=== PATIENT | female | born 1955 | race Caucasian/White ===

== ENCOUNTER → 2021-06-28 14:28 | Outpatient (CLI) | payer OTHER, SELFPAY ==
--- NOTE | ~2021-06-28 | MMUS_ITS ---
EXAMINATION: MM diagnostic timbo BI w kwaku, US breast LT limited HISTORY: Pain of the inner left breast TECHNIQUE: Craniocaudal, mediolateral, and mediolateral oblique 3-D tomosynthesis images of the breas ts were performed and synthetic 2-D images were generated. CAD analysis was submitted and interpreted . High resolution limited left breast ultrasound was performed. COMPARISON: 06/10/2020, 05/05/2020, 02/26/2019, and 10/18/2016 BREAST PARENCHYMAL COMPOSITION: The breasts are heterogeneously dense, which may obscure small masses . FINDINGS: MAMMOGRAPHIC FINDINGS: There is no evidence of suspicious mass, calcification, or architectural distortion in either breast to suggest malignancy. There has been no suspicious interval change. No mammographic correlate is priyanka ntified for the reported area of pain in the inner left breast. ULTRASOUND: There is no evidence of focal abnormal solid or cystic mass in the vicinity of the reported left lakisha st pain. IMPRESSION: 1. No specific mammographic or sonographic correlate is identified for the patient's reported left br east pain Further evaluation at this time should be based on clinical assessment. Continued follow-up physical examination is recommended. 2. Recommend routine screening mammography in one year. BI-RADS Category 1: Negative Reviewed, dictated and finalized at location A. HEMIST IMPRESSION: 1. No specific mammographic or sonographic correlate is identified for the kris ent's reported left breast pain Further evaluation at this time should be based on clinical assessment. Continued follow-up physical examination is recommende d. 2. Recommend routine screening mammography in one year. BI-RADS Category 1: Negative
== END ==
PROVIDERS: PCP Family Medicine; Visit Provider Family Medicine
DX: N64.4 Mastodynia (principal)
CPT/HCPCS: 76642; 77062; 77066; G0279

== ENCOUNTER → 2022-03-25 09:45 | Outpatient (CLI) | payer OTHER, SELFPAY ==
--- NOTE | ~2022-03-25 | CT_ITS ---
EXAMINATION: CT abdomen pelvis w con INDICATION: Intra-abdominal and pelvic swelling after fat cell reducing procedure TECHNIQUE: Computed tomographic images of the abdomen and pelvis were obtained after the administrati on of 100 cc of Omnipaque 350 intravenous contrast. The dose-length product (DLP) was 847.22 mGy-cm. Automated exposure control and iterative reconstruction technique were employed. COMPARISON: None available FINDINGS: Minimal dependent atelectasis is present in the lung bases. The heart size is normal. Cysts of the liver measure up to 7 mm in the left hepatic lobe. There are stones in the nondistended gallb ladder. There is a 2 mm cyst of the spleen. There is a 5 mm cystic lesion in the tail of the pancreas on image 41. The adrenal glands are normal. The left kidney is unremarkable. There is a 5 mm cyst of the right kidney upper pole. No pathologically enlarged abdominal or pelvic lymph nodes are identifi ed. The appendix is normal. There is no free intraperitoneal gas or evidence of bowel obstruction. Th ere is a moderate volume of colonic stool. There are areas of circumscribed fat attenuation in the la teral abdominal eastman as well as the anterior abdominal wall in the left lower quadrant. There is a f at-containing left inguinal hernia. Changes of right hip arthroplasty are noted. IMPRESSION: 1. Areas of circumscribed fat attenuation in the lateral abdominal eastman and anterior left lower quad rant, likely fat necrosis related to fat Monday reducing procedure described in the clinical histor y. 2. 5 mm cystic lesion in the tail of the pancreas. The differential diagnosis includes pseudocyst, in traductal papillary mucinous neoplasm (IPMN), mucinous cystic neoplasm (MCN), and the less common ser ous cystadenoma and neuroendocrine tumor. Correlate for history of pancreatitis. Follow-up pancreas p rotocol CT or MRI in two years is recommended 3. Cholelithiasis without evidence of cholecystitis. Reviewed, dictated and finalized at location B. IMPRESSION: 1. Areas of circumscribed fat attenuation in the lateral abdominal eastman and an terior left lower quadrant, likely fat necrosis related to fat Monday reducin g procedure described in the clinical history. 2. 5 mm cystic lesion in the tail of the pancreas. The differential diagnosis i ncludes pseudocyst, intraductal papillary mucinous neoplasm (IPMN), mucinous cy stic neoplasm (MCN), and the less common serous cystadenoma and neuroendocrine tumor. Correlate for history of pancreatitis. Follow-up pancreas protocol CT or MRI in two years is recommended 3. Cholelithiasis without evidence of cholecystitis.
[2022-03-25 10:15] LABS: Estimated Glomerular Filt Rate > 60
== END ==
PROVIDERS: PCP Family Medicine; Visit Provider Family Medicine
DX: R19.00 Intra-abdominal and pelvic swelling, mass and lump, unspecified site (principal); Z98.890 Other specified postprocedural states; K86.2 Cyst of pancreas; K80.20 Calculus of gallbladder without cholecystitis without obstruction
CPT/HCPCS: 74177; Q9967

== ENCOUNTER → 2022-03-25 09:50 | Outpatient (CLI) | payer OTHER, SELFPAY ==
--- NOTE | ~2022-03-25 | CT_ITS ---
EXAMINATION: CT sinus wo con DATE: 03/25/2022 10:28 INDICATION: Chronic sinusitis. TECHNIQUE: Computed tomography (CT) of the paranasal sinuses was performed without intravenous contra st. Iterative reconstruction technique was employed. The dose-length product was 269.39 mGy-cm. COMPARISON: None FINDINGS: The frontal, ethmoid, sphenoid, and right maxillary sinuses are clear. There is mild mucosa l thickening in inferior left maxillary sinus. The ostiomeatal units are patent. The nasal septum is at midline. The middle turbinates are paradoxical anteriorly. IMPRESSION: 1. Mild mucosal thickening in inferior left maxillary sinus. Reviewed, dictated and finalized at location A.
== END ==
PROVIDERS: PCP Family Medicine; Visit Provider Otolaryngology
DX: J32.0 Chronic maxillary sinusitis (principal)
CPT/HCPCS: 70486

== ENCOUNTER → 2022-12-23 11:15 | Outpatient (CLI) | payer OTHER, SELFPAY ==
--- NOTE | ~2022-12-23 | US_ITS ---
Pelvic ultrasound. Clinical History: Pelvic pain Technique: Realtime transabdominal scanning of the pelvis was performed. Color flow Doppler and Doppl er spectral analysis were performed. Findings: The uterus is anteverted. The endometrial stripe has a thickness of 3 mm. Suspected ill-de fined anterior wall fibroid measuring 2.5 cm noted. The right ovary measures 2.6 x 1.1 x 2.3 cm. No significant right ovarian or adnexal mass is seen. The left ovary measures 2.1 x 1.3 x 2.4 cm. No significant left ovarian or adnexal mass is seen. No distinct evidence for torsion. There is no evidence of free fluid in the cul de sac. Impression: Suspected small uterine fibroid, as above. Reviewed, dictated and finalized at location . Impression: Suspected small uterine fibroid, as above.
== END ==
PROVIDERS: PCP Family Medicine; Visit Provider Nurse Practitioner Family
DX: R10.9 Unspecified abdominal pain (principal)
CPT/HCPCS: 76856

== ENCOUNTER 2023-09-15 11:50 | Outpatient (CLI) | payer OTHER, SELFPAY ==
--- NOTE | ~2023-09-15 | XR_ITS ---
AP and lateral views of the left tibia/fibula Clinical History: Pain Findings: No acute fracture or dislocation is seen. Osseous alignment is anatomic. Joint spaces are p reserved without significant erosive or degenerative change. Soft tissues are unremarkable. Impression: Unremarkable left tib-fib radiographs. Reviewed, dictated and finalized at [facility]. HNUT DOUGH MIXER Impression: Unremarkable left tib-fib radiographs.
== END 2023-09-15 11:51 ==
PROVIDERS: PCP Family Medicine; Visit Provider Family Medicine
DX: M79.662 Pain in left lower leg (principal)
CPT/HCPCS: 73590

== ENCOUNTER 2024-05-22 13:36 | Outpatient (CLI) | payer OTHER, SELFPAY ==
--- NOTE | ~2024-05-22 | MM_ITS ---
EXAMINATION: MM screening timbo BI w kwaku HISTORY: Screening TECHNIQUE: Craniocaudal and mediolateral oblique 3-D tomosynthesis images were obtained and synthetic 2-D images were generated. CAD analysis was submitted and interpreted. COMPARISON: 10/18/2016 BREAST PARENCHYMAL COMPOSITION: Not dense: There are scattered areas of fibroglandular density. FINDINGS: There is no evidence of suspicious mass, calcification, or architectural distortion to sugg est malignancy in either breast. There has been no suspicious interval change. IMPRESSION: 1. No mammographic evidence of malignancy. 2. Recommend routine screening mammography in one year. BI-RADS Category 1: Negative Reviewed, dictated and finalized at location B. RENCE INVESTIGATOR
== END 2024-05-22 13:37 | disposition home or self-care (01) ==
LOC: MICIMG 13:38
PROVIDERS: PCP Family Medicine; Visit Provider Obstetrics & Gynecology
DX: Z12.31 Encounter for screening mammogram for malignant neoplasm of breast (principal)
CPT/HCPCS: 77063; 77067

== ENCOUNTER 2024-08-20 15:16 | Outpatient (CLI) | payer OTHER, SELFPAY ==
--- NOTE | ~2024-08-20 | XR_ITS ---
EXAMINATION: XR chest 2V 08/20/2024 15:40 INDICATION: Cough PROCEDURE: 2 view chest COMPARISON: No prior studies for comparison. FINDINGS: The lungs are clear. The cardiomediastinal silhouette is within normal limits. There are no pleural effusions. There is no pneumothorax suspected. IMPRESSION: 1: NO ACUTE CARDIOPULMONARY DISEASE. Reviewed, dictated and finalized at location B. SHED GARMENT INSPECTOR
== END 2024-08-20 15:17 | disposition home or self-care (01) ==
PROVIDERS: PCP Family Medicine; Visit Provider Family Medicine
DX: R05.9 Cough, unspecified (principal)
CPT/HCPCS: 71046

== ENCOUNTER 2024-11-01 09:18 | Outpatient (CLI) | payer OTHER, SELFPAY ==
--- NOTE | ~2024-11-01 | MM_ITS ---
EXAMINATION: MM diagnostic timbo LT w kwaku HISTORY: Left breast pain TECHNIQUE: Additional 3-D tomosynthesis images of the left breast were performed and synthetic 2-D im ages were generated. CAD analysis was submitted and interpreted. COMPARISON: Comparison to multiple prior studies sequentially, with oldest reviewed study dated 10/2016. BREAST PARENCHYMAL COMPOSITION: Not dense: There are scattered areas of fibroglandular density. FINDINGS: The left breast is stable. No new masses, calcifications or architectural distortion to sug gest malignancy. IMPRESSION: 1. No mammographic evidence for malignancy in the left breast. 2. Routine yearly screening mammogram and regular clinical breast examination are recommended. BI-RADS Category 1: Negative Reviewed, dictated and finalized at location B. IMPRESSION: 1. No mammographic evidence for malignancy in the left breast. 2. Routine yearly screening mammogram and regular clinical breast examination a re recommended. BI-RADS Category 1: Negative
== END 2024-11-01 09:19 | disposition home or self-care (01) ==
LOC: MICIMG 09:18
PROVIDERS: PCP Family Medicine; Visit Provider Family Medicine
DX: N64.4 Mastodynia (principal)
CPT/HCPCS: 77061; 77065; G0279

== ENCOUNTER 2024-11-26 15:36 | Outpatient (CLI) | payer OTHER, SELFPAY ==
--- OUTSIDE RECORDS SUMMARY | 2024-11-26 15:39 | XMS_ITS | Clinical Summary ---
Author Organization [facility] Address [address] [place] [address] Care Team Providers Care Allergy And Immunology Chief Name Role Phone Unavailable Primary Care Provider Unavailabl e Source Comments [facility],non-owned Affiliates and Associated Physician Practices is amultiple site organization consisting of ambulatory clinics and hospital sitesin [place], [place], [place] and [place]. This disclosure is being madepursuant to the Care Everywhere program and may not contain all information available regarding this patient. Last updated 18.[facility] Social History Tobacco Use Types Packs/Day Years Used Date Smoking Tobacco: Never Assessed Comments Unknown Sex and Gender Information Value Date Recorded Sex Assigned at Not on file Legal Sex Female 6:28 AM BREAD MOLDER Gender Identity Not on file Sexual Orientation Not on file Plan of Treatment Health Maintenance Due Date Last Done Comments BONE DENSITY TESTING 1955 COLOGUARD (AGES 45-75) - COL ON CA SCREENING 1955 COLON MONITORING 1953 COLONOSCOPY - COLON CA SCREENING 1953 CT COLONOGRAPHY - COLON CA SCREENING 1955 Colorectal Cancer Screening 1955 FIT - COLON CA SCREENING 1953 FLEX SIG - COLON CA SCREENING 1953 LIPID TESTING 1955 MAMMOGRAM 1953 HEPATITIS C SCREENING 01/19/1971 DTAP/TDAP/TD VACCINES (1 - Tdap) 01/24/1972 PNEUMOCOCCAL VACCINE 50+ (1 of 1 - PCV) 2003 ZOSTER VACCINE (1 of 2) 2003 COVID-19 VACCINE ( - 2023-2 5 season) 2024 DEPRESSION SCREENING 07/17/2024 INFLUENZA VACCINE (Season Ended) 2025 Respiratory Syncytial Virus (RSV) Vaccine Pt: or over 60 yrs (1 - 1-dose 75+ series) 01/24/2028 HEPATITIS B VACCINE Aged Out No longe r eligible based on patient's age to complete this topic HIB VACCINE Aged Out No longer eligi ble based on patient's age to complete this topic HPV VACCINE Aged Out No longer eligi ble based on patient's age to complete this topic MENINGOCOCCAL (Group B) VACC INE SHARED DECISION-MAKING Aged Out No longer eligibl e based on patient's age to complete this topic MENINGOCOCCAL GROUPS A/C/Y/W VACCINE Aged Out No longer eligible b ased on patient's age to complete this topic
--- OUTSIDE RECORDS SUMMARY | 2024-11-26 15:40 | XMS_ITS | Continuity of Care Document ---
Author Organization [facility] Address [address] [place] [address] Phone Care Team Providers Care Prune Washer Name Role Phone Liliane Del Rosario Unavailable Unavailable Procedures Procedure Date Office/outpatient Visit, [facility] Advance Directives Directive Yes / No Effective Date File Name No Information Encounters Encounter Description Practice Location Reason(s) For Visit Diagnoses Date Provider Providers Copied on Encounter Office/outpat ient Visit, [facility], [address], [place], [place], [id number], [place] tel:[phone] [facility] No Information [address] , [address], [place], [address], [place]. tel:[phone] Family History Family Member Type Diagnosis Age At Onset No Information Payers Payer name Insurance type Covered constitution party ID Authoriza tion(s) [facility] [place] [id number] Social History Type Description Quantity Date Captured Comments Sex Female Smoking Status No Information Chief Complaint And Reason For Visit No Information Reason For Referral Reason For Referral No Information History Of Present Illness Encounter Date Complaint History Of Prese nt Illness No Information Functional Status Date Functional Assessmen t No Information Instructions Date Instruction Additional Infor mation No Information Assessments Type Assessment Date No Information Patient Care Teams Name Effective Dates (start - stop) Status Members No Information
--- OUTSIDE RECORDS SUMMARY | 2024-11-26 15:40 | XMS_ITS | Clinical Summary ---
Author Organization [facility] Address [address] [place] [address] Care Team Providers Care Embroidery Cutter Name Role Phone Parul Droan DO Primary Care Provider [phone] Allergies Active Allergy Reactions Criticality Noted Date Comments Tetracycline Medications metoprolol tartrate (LOPRESSOR) 50 mg immediate release tablet Take 1 tablet (50 mg total) by mouth 2 (two) times a day 07/24/2024 Active losartan (COZAAR) 100 mg tablet Take 1 tablet (100 mg total) by mouth daily 11/15/2023 Active folic acid (FOLVITE) 1 mg tablet Take 1 tablet (1 mg total) by mouth nightly 04/23/2021 Active Active Problems Problem Noted Date Diagnosed Date Lumbago 01/24/2013 Inflammation of sacroiliac joint 01/24/2013 Degeneration of intervertebral disc of lumbar re gion 01/24/2013 Chronic pain due to trauma 01/24/2013 Chronic pain 01/24/2013 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/24/2013 Sciatica 01/24/2013 Migraine headache 11/04/2010 Encounters Date Type Department Care Team Description 09/13/2024 9:01 AM CELLAR SUPERVISOR - 09/13/2024 11:59 PM CELLAR SUPERVISOR Hospital Encounter [facility] [address] [place] [address] Speech disturbance, unspecified type Discharge Disposition: Discharge to home or self care from Last 3 Months Surgical History Surgery Date Site/Laterality Comments SINUS SURGERY Sinus Surgery - (Added by TW Conv) ID TONSILLECTOMY PRIMARY/SEC ONDARY <AGE 10 Tonsillectomy - (Added by TW Conv) Medical History Medical History Date Comments Personal history of other di seases of the circulatory system History of hypertension - (A dded by HELEN Conv) Personal history of other en docrine, nutritional and metabolic disease History of hyperlipi demia - (Added by HELEN Conv) Social History Tobacco Use Types Packs/Day Years Used Date Smoking Tobacco: Never Tobacco Cessation:Counseling Given: Not Answered Comments Unknown Sex and Gender Information Value Date Recorded Sex Assigned at Not on file Legal Sex Female 9:08 AM CELLAR SUPERVISOR Gender Identity Not on file Sexual Orientation Not on file Obstetrics History Last Filed Vital Signs Vital Sign Reading Time Taken Comments Blood Pressure 169/81 08/02/2024 9:38 AM CELLAR SUPERVISOR Pulse 70 08/02/2024 9:38 AM CELLAR SUPERVISOR Temperature - - Respiratory Rate - - Oxygen Saturation - - Inhaled Oxygen Concentration - - Weight 68.5 kg (151 lb) 09/13/2024 9:23 AM CELLAR SUPERVISOR Height 162.6 cm (5' 4 ) 09/13/2024 9:23 AM CELLAR SUPERVISOR Body Mass Index 25.92 09/13/2024 9:23 AM CELLAR SUPERVISOR Plan of Treatment Health Maintenance Due Date Last Done Comments Breast Cancer Screening-Mammogram 1953 Colon Cancer Screening-Colonoscopy 1955 Depression Screening 1953 Fall Risk Assessment 1955 Hepatitis C Screening 1955 Osteoporosis Screening-Bone Density Scan 1953 DTaP/Tdap/Td Vaccine (1 - Tdap) 01/24/1964 Hepatitis B Screening 1971 Pneumococcal vaccine 65+ (1 of 1 - PCV) 2003 Zoster Vaccine (1 of 2) 2003 Well Visit 65+ 2018 Influenza Vaccine (#1) 2024 Procedures Procedure Name Priority Date/Time Associated Diagnosis Comments MRI BRAIN AND VOLUMETRIC WO CONTRAST Schedule Routine, Read Routine (OP Routine) 09/13/2024 10:06 AM CELLAR SUPERVISOR Speech disturbance, unspecified type from Last 3 Months Results * MRI Brain and Volumetric WO Contrast (09/13/2024 10:06 AM CELLAR SUPERVISOR) Anatomical Region Laterality Modality Head and Neck N/A Magnetic Resonan ce 09/13/2024 12:2 5 PM CELLAR SUPERVISOR Impressions 09/14/2024 11:26 AM CELLAR SUPERVISOR 1. Subjectively smaller and mildly FLAIR hyperintense left hippocampus, though quantitative analysis reports this to be within normal limits in size. Otherwise, regional brain volumes appear to be within normal limits. 2. Trace superficial siderosis and the left frontal lobe and at least one left temporal lobe microhemorrhage. These are nonspecific findings, but can be indicative of cerebral amyloid angiopathy versus sequela of prior head trauma. 3. Mild burden of senescent white matter hyperintensities. Dictated by: Ariel Galo D.O. The radiology attending physician has personally reviewed this study, and had reviewed and/or edited this written report and agrees with it. Electronically signed by: Desirae Lizarraga M.D. Narrative 09/14/2024 11:26 AM CELLAR SUPERVISOR EXAMINATION: Magnetic resonance imaging (MRI) of the brain and brainstem without contrast HISTORY: Word finding problems, possible memory changes. TECHNIQUE: Multiplanar multi-weighted MRI of the brain and brainstem was performed without intravenous contrast using a protocol specific to assess patients with memory complaints. T1-weighted sagittal MPRAGE images of the brain were postprocessed on [employer] to generate segmented brain volumes using commercial software. Results were compared to 10th and 90th percentiles of healthy age-/gender-matched population. Graphs were sent to [employer] PACS. The protocol specifically includes FLAIR to assess for potential infarcts and white matter lesions associated with vascular cognitive impairment and with susceptibility sensitive sequences for detection of cerebral microhemorrhages. COMPARISON: None Available. FINDINGS: Subjectively, there is asymmetry of the hippocampi, the left appearing smaller in size (MTA grade 2) and mildly FLAIR hyperintense. Otherwise, brain volumes appear to be within normal limits. The scalp and calvarium are normal. The superior sagittal sinus demonstrates normal venous flow. The corpus callosum is normal in shape and signal intensity. The posterior fossa is unremarkable. The pituitary and sella are normal. The brainstem and craniocervical junction are unremarkable. There is a microhemorrhage in the left temporal lobe. There is another potential microhemorrhage in the left occipital temporal region, but this may reflect volume averaging from the adjacent choroid plexus. There is trace superficial siderosis in the left superior frontal sulcus. Diffusion weighted images reveal no hyperintensities to suggest acute cerebral infarction. The ventricles are normal in size and position without evidence of hydrocephalus. There are scattered small deep, pontine, and periventricular white matter FLAIR hyperintensities in a nonspecific pattern. The paranasal sinuses are normal. The visualized portions of the mastoids are unremarkable. The orbits appear normal. Normal flow voids are demonstrated in the carotid arteries and basilar artery. QUANTITATIVE ASSESSMENT: Assessment of hippocampal volumes: Subjective mild volume loss and increase in FLAIR signal in the left hippocampus as per above. However, quantitative analysis reports the left hippocampus to be between the 25th and 50th percentile in size. Quantitative assessment was performed using [employer] and is reported. Regional brain volumes are within normal limits for age-matched individual. QUALITATIVE ASSESSMENT: Small infarcts (< 15 mm): None. Infarcts (>15 mm): No. White matter hyperintensities (Fazekas grade): Mild/Fazekas 1: Multiple punctate lesions. Prior cerebral microhemorrhages: No prior exam is available to allow for adequate comparison. New/incident cerebral microhemorrhages: 1 new MCH. Left temporal lobe. Total cerebral microhemorrhages: 1 MCH. Prior siderosis: no prior exam available for adequate comparison. New/incident siderosis: 1 focal area of superficial siderosis. Left superior frontal lobe sulcus. Procedure Note Desirae Lizarraga MD - 09/14/2024 EXAMINATION: Magnetic resonance imaging (MRI) of the brain and brainstem without contrast HISTORY: Word finding problems, possible memory changes. TECHNIQUE: Multiplanar multi-weighted MRI of the brain and brainstem was performed without intravenous contrast using a protocol specific to assess patients with memory complaints. T1-weighted sagittal MPRAGE images of the brain were postprocessed on [employer] to generate segmented brain volumes using commercial software. Results were compared to 10th and 90th percentiles of healthy age-/gender-matched population. Graphs were sent to [employer] PACS. The protocol specifically includes FLAIR to assess for potential infarcts and white matter lesions associated with vascular cognitive impairment and with susceptibility sensitive sequences for detection of cerebral microhemorrhages. COMPARISON: None Available. FINDINGS: Subjectively, there is asymmetry of the hippocampi, the left appearing smaller in size (MTA grade 2) and mildly FLAIR hyperintense. Otherwise, brain volumes appear to be within normal limits. The scalp and calvarium are normal. The superior sagittal sinus demonstrates normal venous flow. The corpus callosum is normal in shape and signal intensity. The posterior fossa is unremarkable. The pituitary and sella are normal. The brainstem and craniocervical junction are unremarkable. There is a microhemorrhage in the left temporal lobe. There is another potential microhemorrhage in the left occipital temporal region, but this may reflect volume averaging from the adjacent choroid plexus. There is trace superficial siderosis in the left superior frontal sulcus. Diffusion weighted images reveal no hyperintensities to suggest acute cerebral infarction. The ventricles are normal in size and position without evidence of hydrocephalus. There are scattered small deep, pontine, and periventricular white matter FLAIR hyperintensities in a nonspecific pattern. The paranasal sinuses are normal. The visualized portions of the mastoids are unremarkable. The orbits appear normal. Normal flow voids are demonstrated in the carotid arteries and basilar artery. QUANTITATIVE ASSESSMENT: Assessment of hippocampal volumes: Subjective mild volume loss and increase in FLAIR signal in the left hippocampus as per above. However, quantitative analysis reports the left hippocampus to be between the 25th and 50th percentile in size. Quantitative assessment was performed using [employer] and is reported. Regional brain volumes are within normal limits for age-matched individual. QUALITATIVE ASSESSMENT: Small infarcts (< 15 mm): None. Infarcts (>15 mm): No. White matter hyperintensities (Fazekas grade): Mild/Fazekas 1: Multiple punctate lesions. Prior cerebral microhemorrhages: No prior exam is available to allow for adequate comparison. New/incident cerebral microhemorrhages: 1 new MCH. Left temporal lobe. Total cerebral microhemorrhages: 1 MCH. Prior siderosis: no prior exam available for adequate comparison. New/incident siderosis: 1 focal area of superficial siderosis. Left superior frontal lobe sulcus. IMPRESSION: 1. Subjectively smaller and mildly FLAIR hyperintense left hippocampus, though quantitative analysis reports this to be within normal limits in size. Otherwise, regional brain volumes appear to be within normal limits. 2. Trace superficial siderosis and the left frontal lobe and at least one left temporal lobe microhemorrhage. These are nonspecific findings, but can be indicative of cerebral amyloid angiopathy versus sequela of prior head trauma. 3. Mild burden of senescent white matter hyperintensities. Dictated by: Ariel Galo D.O. The radiology attending physician has personally reviewed this study, and had reviewed and/or edited this written report and agrees with it. Electronically signed by: Desirae Lizarraga M.D. Koko Bush DO IMG MRI PROCEDURES Final R esult from Last [address] [facility] Care Teams Embroidery Cutter Relationship Specialty Start Date End Date Parul Doran DO [facility] [address] [place] [address] [place] [id number] PCP - General Family Medicine 03/08/24
--- OUTSIDE RECORDS SUMMARY | 2024-11-26 15:40 | XMS_ITS | CONTINUITY OF CARE DOCUMENT ---
Author Name naz, naz Address Unknown Organization [facility] Address [address] [place] [address] Phone [phone] Care Team Providers Care Corporate Librarian Name Role Phone Brian Jeffers MD Unavailable [phone] VERNACE DO, PARUL Unavailable VERNACE DO, PARUL Unavailable PROBLEMS Condition Status Date Provider Notes Iron deficiency active Zuleika Beckham HTN ESSENTIAL;neg duplex active Akil sánchez MD SLEEP APNEA;uses mouth appliance active Addy Amaya MD ANXIETY DISORDER GENERALIZED active Akil Amaya MD Common migraine active Akil Amaya MD CHEST PAIN, ATYPICAL;NEG ECH O & NUC 2009 active - Akil Amaya MD Hyperlipidemia; active Akil Amaya MD CAD;NEG NUC 09 completed - Akil Amaya MD FAMILY HISTORY OF HEART DISEASE active Swetha Amaya MD Family History of Hypertension: completed - Isai Amaya MD Palpitations completed - Akil Amaya MD ? Abnormal electrocardiogram completed 201 12/16/04 - Akil Amaya MD Abnormal pulmonary function tests active Isai Amaya MD Vitamin D deficiency active Akil Sanders D Screening active Akil Amaya MD Diastolic dysfunction active Akil Amaya MD Overweight completed - Akil Amaya MD Hypertriglyceridemia active Akil Ferrer Palpitations active Martin Dumont ENCOUNTERS Date Type Provider Location Encounter Diag nosis 7 - 7 In-person encounter Office Visit Brian Jeffers MD [facility] 8 - 9 In-person encounter Office Visit Brian Jeffers MD [facility] 5 - 5 In-person encounter Office Visit Brian Jeffers MD [facility] Palpitations 0 - 0 In-person encounter Office Visit Brian Jeffers MD [facility] 6 - 6 In-person encounter Office Visit Akil Amaya MD [facility] Diastolic dysfunctionHypertriglyceridemia 7 - 7 In-person encounter Office Visit Akil Amaya MD [facility] Common migrainePalpitationsOverweight 4 - 4 In-person encounter Office Visit Akil Amaya MD [facility] Hyperlipidemia;Abnormal pulmonary function testsScreening 8 - 5 In-person encounter Office Visit Akil Amaya MD [facility] 6 - 6 In-person encounter Office Visit Akil Amaya MD [facility] HTN ESSENTIAL;neg duplexCAD;NEG NUC 09Family History of Hypertension:? Abnormal electrocardiogramVitamin D deficiencyScreening 5 - 5 In-person encounter Office Visit Akil Amaya MD [facility] Abnormal pulmonary function tests 7 - 7 In-person encounter Office Visit Akil Amaya MD [facility] SLEEP APNEA;uses mouth appliance 1 - 1 In-person encounter Office Visit Akil Amaya MD [facility] 5 - 5 In-person encounter Office Visit Akil Amaya MD [facility] 8 - 8 In-person encounter Office Visit Akil Amaya MD [facility] Hyperlipidemia; 5 - 5 In-person encounter Office Visit Akil Amaya MD [facility] 7 - 7 In-person encounter Office Visit Akil Amaya MD [facility] HTN ESSENTIAL;neg duplexCHEST PAIN, ATYPICAL;NEG ECHO & NUC 2009FAMILY HISTORY OF HEART DISEASE 0 - 0 In-person encounter Office Visit Akil Amaya MD [facility] HTN ESSENTIAL;neg duplexSLEEP APNEA;uses mouth applianceANXIETY DISORDER GENERALIZEDCommon migraineHyperlipidemia; 5 - 6 In-person encounter Office Visit Brian Jeffers MD [facility] 2 - 2 In-person encounter Office Visit Akil Amaya MD [facility] SLEEP APNEA;uses mouth applianceANXIETY DISORDER GENERALIZEDCommon migraineCHEST PAIN, ATYPICAL;NEG ECHO & NUC 2008 VITAL SIGNS Date Observation Value Provider Body Mass Index (Ratio) 25.62 kg/m2 Henry Dumont blood pressure, diastolic 86 mm[Hg] Laura Reich blood pressure, systolic 165 mm[Hg] Juana Reich oxygen saturation, oximetry 97 % Nelida Reich pulse rate 70 /min Nelida Reich respiratory rate E&M 12 /min Nelida Reich weight E&M 154 [lb_av] Nelida Reich height E&M 65 [in_i] Nelida Reich blood pressure, cuff size regular Laura Reich Body Mass Index (Ratio) 25.46 kg/m2 Henry Dumont blood pressure, diastolic 107 mm[Hg] Laura Reich blood pressure, systolic 177 mm[Hg] Juana Reich oxygen saturation, oximetry 96 % Nelida Reich pulse rate 90 /min Nelida Reich respiratory rate E&M 12 /min Nelida Reich weight E&M 153 [lb_av] Nelida Reich height E&M 65 [in_i] Nelida Reich blood pressure, cuff size regular An marcel Reich Body Mass Index (Ratio) 25.79 kg/m2 Henry Dumont blood pressure, diastolic -1 mm[Hg] Li nkLogic blood pressure, systolic 156 mm[Hg] Jenny kLog blood pressure, diastolic 94 mm[Hg] Ja rret blood pressure, systolic 156 mm[Hg] Jar ret pulse rate 90 /min Abimael y blood pressure, cuff size regular Ja rret respiratory rate E&M 14 /min Abimael oxygen saturation, oximetry 98 % Abimael weight E&M 155 [lb_av] Abimael y height E&M 65 [in_i] Abimael y Body Mass Index (Ratio) 25.12 kg/m2 Roby Cerna blood pressure, cuff size regular Ke rri Gruenenfelder blood pressure, diastolic 100 mm[Hg] Ke rri Gruenenfelder blood pressure, systolic 174 mm[Hg] Jacobo Agustin oxygen saturation, oximetry 98 % Sylvie Agustin respiratory rate E&M 12 /min Sylvie keller pulse rate 99 /min Sylvie marieer weight E&M 151 [lb_av] Sylvie Cordon lder height E&M 65 [in_i] Sylvie Neris [facility] Body Mass Index (Ratio) 24.96 kg/m2 Swetha Amaya MD weight E&M 150 [lb_av] Akil Sanders D blood pressure, diastolic 100 mm[Hg] Isai Amaya MD blood pressure, systolic 140 mm[Hg] Addy Amaya MD Body Mass Index (Ratio) 25.29 kg/m2 Swetha Amyaa MD blood pressure, diastolic 77 mm[Hg] Jackie Pacheco Ryan blood pressure, systolic 155 mm[Hg] Mary Cormier Connor oxygen saturation, oximetry 97 % Sekou Ryan respiratory rate E&M 18 /min Kimmie hcang Ryan pulse rate 88 /min Sekou Bebo [facility] weight E&M 152 [lb_av] Sekou aLgunas [facility] height E&M 65 [in_i] SekouMelissa Lagunas [facility] Body Mass Index (Ratio) 25.29 kg/m2 Swetha Amaya MD oxygen saturation, oximetry 98 % Chastity [facility] pulse rate 86 /min [facility] Loyda respiratory rate E&M 16 /min Chastit y Loyda blood pressure, diastolic 78 mm[Hg] Ch astity Loyda blood pressure, systolic 140 mm[Hg] Gisselle stity Loyda weight E&M 152 [lb_av] Chastity Loyda height E&M 65 [in_i] Chastity Loyda Body Mass Index (Ratio) 23.13 kg/m2 Luz Elena ica N [place] blood pressure, cuff size regular Je ssica Sean Beckham blood pressure, diastolic 70 mm[Hg] Je ssica Sean Beckham blood pressure, systolic 130 mm[Hg] Diane carly Sean Beckham oxygen saturation, oximetry 97 % Zuleika N [place] respiratory rate E&M 18 /min Zuleika N [place] pulse rate 75 /min Zuleika N [place] n weight E&M 139 [lb_av] Zuleika N Wil[place] n Body Mass Index (Ratio) 23.23 kg/m2 Luz Elena ica N [place] blood pressure, cuff size regular Je ssica N [place] blood pressure, diastolic 70 mm[Hg] Je ssica N [place] blood pressure, systolic 138 mm[Hg] Diane carly N [place] oxygen saturation, oximetry 97 % Zuleika N [place] respiratory rate E&M 18 /min Zuleika N [place] pulse rate 97 /min Zuleika N Wil[place] n weight E&M 139.6 [lb_av] Zuleika N Wils on blood pressure, diastolic 82 mm[Hg] Sh vielka Bass SOFTWARE TEST ANALYST blood pressure, systolic 150 mm[Hg] She nicanor Bass SOFTWARE TEST ANALYST Body Mass Index (Ratio) 24.96 kg/m2 Swetha Amaya MD pulse rate 82 /min Velma Lennon respiratory rate E&M 17 /min Velma Lennon oxygen saturation, oximetry 98 % Velma Lennon blood pressure, diastolic 90 mm[Hg] Lyle Lennon blood pressure, systolic 160 mm[Hg] Min Lennon blood pressure, cuff size regular Lyle Lennon weight E&M 150 [lb_av] Velma Lennon height E&M 65 [in_i] Velma Lennon blood pressure, diastolic 88 mm[Hg] Ca kierstenace Katya blood pressure, systolic 150 mm[Hg] Can dace Katya blood pressure, diastolic 88 mm[Hg] Me jose Luis blood pressure, systolic 154 mm[Hg] Kenisha carisa Luis pulse rate 105 /min Florencia Luis oxygen saturation, oximetry 98 % Florencia Smith respiratory rate E&M 16 /min Florencia Smith Body Mass Index (Ratio) 25.29 kg/m2 Vianney Smith weight E&M 152 [lb_av] Florencia Smith Body Mass Index (Ratio) 24.46 kg/m2 Moy i BLue blood pressure, diastolic 80 mm[Hg] Ni alannai BLue blood pressure, systolic 116 mm[Hg] Josef lara BLue pulse rate 97 /min Viri BLue oxygen saturation, oximetry 96 % Viri BLue respiratory rate E&M 18 /min Viri B Lue weight E&M 147 [lb_av] Viri Gould Body Mass Index (Ratio) 23.72 kg/m2 Anea zaira Jasper blood pressure, diastolic 84 mm[Hg] An eatris Jasper blood pressure, systolic 132 mm[Hg] Ane atris Jasper pulse rate 96 /min Aneatris Jasper oxygen saturation, oximetry 95 % Aneatris Jasper respiratory rate E&M 20 /min Aneatri s Jasper weight E&M 142 [lb_av] Aneatris Jasper blood pressure, diastolic 64 mm[Hg] Lyle Lennon blood pressure, systolic 122 mm[Hg] Min Lennon Body Mass Index (Ratio) 25.55 kg/m2 Amina farzad Lennon pulse rate 82 /min Velma Lennon oxygen saturation, oximetry 93 % Velma Lennon respiratory rate E&M 16 /min Velma Lennon weight E&M 153 [lb_av] Velma Lennon blood pressure, diastolic 86 mm[Hg] Ma rsha O'Ga blood pressure, systolic 143 mm[Hg] Mar sha O'Ga pulse rate 81 /min Serena O'Ga oxygen saturation, oximetry 96 % Serena O'Ga respiratory rate E&M 16 /min Serena O'Ga weight E&M 151 [lb_av] Serena O'Ga blood pressure, kelly tolic, second observation 80 mm[Hg] Garret Godfrey SOFTWARE TEST ANALYST blood pressure, syst olic, second observation 142 mm[Hg] Garret Godfrey SOFTWARE TEST ANALYST JNC systolic blood pressure goal 140 m m/[Hg] Garret Godfrey SOFTWARE TEST ANALYST pulse rate 91 /min Garret Garber s SOFTWARE TEST ANALYST Body Mass Index (Ratio) 25.39 kg/m2 Lacr etiestela Godfrey SOFTWARE TEST ANALYST weight E&M 152 [lb_av] Garret Garber s SOFTWARE TEST ANALYST height E&M 65 [in_i] Garret davis SOFTWARE TEST ANALYST blood pressure, diastolic 80 mm[Hg] La linn Godfrey SOFTWARE TEST ANALYST blood pressure, systolic 140 mm[Hg] Lac ondina Godfrey SOFTWARE TEST ANALYST blood pressure, diastolic, left arm 88 mm [Hg] Nancy Hagan MA blood pressure, systolic, left arm 141 mm [Hg] Nancy Hagan MA blood pressure, diastolic, right arm 81 m m[Hg] Nancy Hagan MA blood pressure, systolic, right arm 128 m m[Hg] Nancy Hagan MA oxygen saturation, oximetry 99 % Nancy Hagan MA blood pressure, diastolic 88 mm[Hg] Richelle Hagan MA blood pressure, systolic 141 mm[Hg] Juaquin Hagan MA pulse rate 109 /min Nancy Hagan MA respiratory rate E&M 16 /min Nancy Hagan MA weight E&M 147 [lb_av] Nancy Hagan MA blood pressure, diastolic, left arm 90 mm [Hg] Clark Chavez blood pressure, systolic, left arm 143 mm [Hg] Clark Chavez blood pressure, diastolic, right arm 87 m m[Hg] Clark Manacop blood pressure, systolic, right arm 142 m m[Hg] Clark [place] blood pressure, diastolic 87 mm[Hg] Danielle seph [place] blood pressure, systolic 142 mm[Hg] Theo eph [place] pulse rate 95 /min Clark [place] oxygen saturation, oximetry 100 % Clark [place] respiratory rate E&M 16 /min Clark [place] weight E&M 147 [lb_av] Clark [place] blood pressure, diastolic 84 mm[Hg] Danielle seph [place] blood pressure, systolic 140 mm[Hg] Theo eph [place] pulse rate 92 /min Clark [place] oxygen saturation, oximetry 97 % Clark [place] respiratory rate E&M 16 /min Clark [place] weight E&M 148 [lb_av] Clark Man[place]op blood pressure, diastolic, left arm 82 mm [Hg] Marjan Holden blood pressure, systolic, left arm 135 mm [Hg] Marjan Duganett blood pressure, diastolic 80 mm[Hg] Brando Holden blood pressure, systolic 118 mm[Hg] Greco pulse rate 97 /min Marjan Holden oxygen saturation, oximetry 94 % Marjan Holden respiratory rate E&M 18 /min Marjan zamora weight E&M 145 [lb_av] Marjan Holden ALLERGIES Allergy Name Onset Date Reaction Criticality Status ADIPEX-P Low Criticality active ZESTRIL rash rash Low Criticality active RESULTS Date Observation Value Provider Reference Range Interpretation Location hemoglobin A1C, blood, as % of total hemoglobin 6.2 % OF TOTAL HGB LinkLogic <5.7 High [facility] [address] [place] [address] [facility] calcium, serum 9.9 mg/dL LinkLogic 8.6-10.4 Normal [place] [address] [place] [address] [facility] carbon dioxide, venous blood 27 mmol/L [facility]Logic 20-32 Normal [employer] [place] [address] [place] [address] [facility] chloride, serum 106 mmol/L [facility]ic 98-110 Normal [employer] [place] [address] [place] [address] [facility] potassium, serum 3.7 mmol/L [facility] 3.5-5.3 Normal [place] [address] [place] [address] [facility] sodium, serum 140 mmol/L LinkLogic 135-146 Normal [employer] [place] [address] [place] [address] [facility] urea nitrogen/creatinin e ratio, serum SEE NOTE: (calc) LinkLogic 6-22 [place] [address] [place] [address] [facility] creatinine, serum 0.66 mg/dL LinkLogic 0.60-1.00 Normal [employer] [place] [address] [place] [address] [facility] urea nitrogen, blood 9 mg/dL LinkLogic 7-25 Normal [place] [address] [place] [address] [facility] blood glucose, random 91 mg/dL LinkLogic 65-139 Normal [place] [address] [place] [address] [facility] NT-pro BNP <36 LinkLogic <125 Normal [place] [address] [place] [address] [facility] microalbumin/creat inine ratio, urine 17 MG/G CREAT LinkLogic <30 Normal [place] [address] [place] [address] [facility] Vo microalbumin/total urine volume 5 mg/L LinkLogic Units converted. See lab report for original value. Normal [place] [address] [place] [address] [facility] Vo creatinine, random, urine 29 mg/dL LinkLogic 20-275 Normal [place] [address] [place] [address] [facility] Vo lipoprotein, beta, serum, point, quantitative, calculated 69 mg/dL LinkLogic 0-99 very low density lipoproteins 66 mg/dL LinkLogic 5-40 High HDL cholesterol, serum 36 mg/dL LinkLogic >39 Low triglyceride, serum, random 331 mg/dL LinkLogic 0-149 High cholesterol, serum 171 mg/dL LinkLogic 208-175 0859/02 /06 D-dimer quantitative mcg/mL 2.37 MCG/ML FEU LinkLogic <0.50 High free thyroxine index 6.9 ??g/dL LinkLogic 4.4 - 11.4 triiodothyronine uptake 1.1 TBI LinkLogic 0.8 - 1.3 thyroxine, serum, total 7.6 ??G/DL LinkLogic 4.5 - 11.7 thyroid stimulating hormone, serum 1.270 ?IU/ ML LinkLogic 0.270 - 4.200 red blood cell distribution width, size density 43.8 fL LinkLogic - immature granulocytes, percentage of total cells, blood 0.2 % LinkLogic - nucleated red blood cells as percent of blood leukocytes 0.0 % LinkLogic - red blood cell (erythrocyte) count, per high power field 0.0 10*3/UL LinkLogic - eosinophils as percent of blood leukocytes 2.7 % LinkLogic - neutrophils as percent of blood leukocytes 62.8 % LinkLogic - Absolute Neutrophils 5.4 CELLS/U L LinkLogic 1.5 - 7.8 basophils as percent of blood leukocytes 1.0 % LinkLogic - Absolute Basophils 0.1 CELLS/U L LinkLogic 0.0 - 0.2 monocytes as percent of blood leukocytes 9.4 % LinkLogic - Absolute Monocytes 0.8 CELLS/U L LinkLogic 0.2 - 1.0 lymphocytes as percent of blood leukocytes 23.9 % LinkLogic - Absolute Lymphocytes 2.1 CELLS/U L LinkLogic 0.9 - 3.9 mean platelet volume 11.2 (?) LinkLogic - platelet count 252.0 THOUSAN D/UL LinkLog 100.0 - 400.0 mean corpuscular hemoglobin concentration, RBC 31.7 G/DL LinkLogic 31.0 - 38.0 mean corpuscular hemoglobin, RBC 29.3 pg LinkLogic 25.0 - 35.0 mean corpuscular volume, RBC 92.7 fL LinkLogic 75.0 - 100.0 hematocrit, blood 41.7 % LinkLog 35.0 - 55.0 hemoglobin, blood 13.2 g/[facility] - 16.5 erythrocyte count, whole blood 4.5 MILLION /UL LinkLogic 3.5 - 5.5 hemoglobin A1C, blood, as % of total hemoglobin 5.6 % LinkLog 4.0 - 6.0 vitamin b12, serum 852.0 pg/mL LinkLogic 211.0 - 946.0 C-reactive protein, serum 0.2 mg/dL LinkLogic 0.0 - 0.5 very low density lipoproteins 52.6 mg/dL [facility] 5.[facility] - 40.0 High LDL/HDL (low-density lipoprotein/high-d ensity lipoprotein) ratio 1.9 RATIO [facility] - lipoprotein, beta, serum, point, quantitative, calculated 78.4 (?) LinkLogic 0.0 - 100.0 HDL cholesterol, serum 42.0 mg/dL LinkLogic 45.0 - 65.0 Low cholesterol, serum 173.0 mg/dL LinkLogic 0.0 - 200.0 triglyceride, serum, fasting 263.0 mg/dL LinkLogic 0.0 - 150.0 High pro brain natriuretic peptide 5.3 pg/mL LinkLogic 0.0 - 125.0 anion gap, serum 10.3 LinkLogic - albumin/globulin ratio, serum 2.9 g/dL LinkLogic 1.1 - 2.5 High globulin, serum 2.9 LinkLogic 2.3 - 3.8 urea nitrogen/creatinin e ratio, serum 15.0 LinkLogic - Estimated Glomerular Filtration Rate (calc) 77.2 (?) LinkLogic 59.0 - chloride, serum 104.7 mmol/L LinkLogic 98.0 - 107.0 potassium, serum 4.0 mmol/L LinkLogic 3.5 - 5.1 sodium, serum 142.0 mmol/L LinkLogic 136.0 - 145.0 creatinine, serum 0.8 mg/dL LinkLogic 0.5 - 0.9 carbon dioxide, venous blood 27.0 mmol/L LinkLogic 23.0 - 31.0 albumin, serum 4.7 g/dL LinkLogic 3.5 - 5.2 calcium, serum 9.8 mg/dL LinkLogic 8.6 - 10.2 aspartate aminotransferase (SGOT), serum 23.0 1/L LinkLogic 0.0 - 32.0 alkaline phosphatase, serum 93.0 1/L LinkLogic 40.0 - 130.0 alanine aminotransferase (SGPT), serum 19.0 1/L LinkLogic 0.0 - 33.0 protein, total, serum 7.6 g/dL LinkLogic 6.6 - 8.7 bilirubin, serum, total 0.4 mg/dL LinkLogic 0.0 - 1.2 urea nitrogen, blood 12.0 mg/dL LinkLogic 8.0 - 23.0 blood glucose, random 85.0 mg/dL LinkLogic 74.0 - 99.0 platelet count 235 10*3/mm 3 [facility] hematocrit, blood 40.6 % [facility] triglyceride, serum, fasting 104 mg/dL [facility] HDL cholesterol, serum 47 mg/dL [facility] lipoprotein, beta, serum, point, quantitative, calculated 88 mg/dL [facility] cholesterol, serum 156 mg/dL [facility] thyroid stimulating hormone, serum 2.340 u[IU]/m L [facility] alanine aminotransferase (SGPT), serum 35 1/L [facility] aspartate aminotransferase (SGOT), serum 26 1/L [facility] creatinine, serum 0.75 mg/dL [facility] potassium, serum 3.9 mmol/L [facility] sodium, serum 147 mmol/L [facility] HISTORY OF MEDICATION USE Medication Status Instructions Dates Provider Indications Com ments verapamil 240 mg capsule,ext rel. pellets 24 hr active TAKE 1 CAPSULE BY MOUTH EVERY DAY Brian Jeffers MD metoprolol tartrate 50 mg tablet completed Take 1 tablet by mouth twice a day - Brian Jeffers MD losartan 100 mg tablet active TAKE 1 TA BLET BY MOUTH EVERY DAY Brian Jeffers MD verapamil 240 mg capsule,ext rel. pellets 24 hr completed TAKE 1 CAPSULE BY MOUTH EVERY DAY - Brian Jeffers MD rosuvastatin 10 mg tablet active Brian Jeffers MD Verelan 240 mg capsule,ext rel. pellets 24 hr completed 1 capsule daily - Cass Corleyenz Verelan 240 mg capsule,ext rel. pellets 24 hr completed 1 capsule daily - Bobby Bradford RN verapamil 240 mg tablet extended release completed TAKE 1 TABLET BY MOUTH EVERY DAY - Chastity Loyda Zithromax 1 gram packet active as directed Akil Amaya MD ergocalciferol (vitamin D2) 1,250 mcg (50,000 unit) capsule active 1 capsule by mouth once a week Akil Amaya MD verapamil 240 mg tablet extended release completed TAKE ONE TABLET BY MOUTH ONCE DAILY - Gissellestity Loyda hydrochlorothiazide 12.5 mg capsule active Take 1 capsule by mouth once a day Brian Jeffers MD MULTIVITAMINS ORAL CAPSULE active 1 tablet once a day Sekou Ryan turmeric 400 mg capsule active 1 tablet once a day Sekou Ryan biotin 1 mg capsule active 1 tablet onc e a day Sekou Ryan ADIPEX-P 37.5 MG ORAL TABLET completed one a day - Sekou Ryan vitamin E 400 unit capsule active 1 capsule once a day Gissellestkishore Scales losartan 50 mg tablet completed Take 1 tab let by mouth once a day - Abimael Desir VITAMIN D3 60830 UNIT ORAL CAPSULE completed one a week - Akil Amaya MD CHLORTHALIDONE 25 MG ORAL TABLET completed ONE TAB. DAILY - Caroline Scales CARDURA 1 MG ORAL TABLET completed once daily - Akil Amaya MD HYDROCHLOROTHIAZIDE CAPSULE completed daily - Viri Gould alprazolam 0.25 mg tablet active 0.5 once a day as needed Akil Amaya MD VERAPAMIL 120 MG CAP PELLET completed TAKE TWO CAPSULES BY MOUTH ONCE DAILY AT THE SAME TIME - Akil Amaya MD ATIVAN TABS completed as needed - Aneatris Brown NORTRIPTYLINE HCL 25 MG ORAL CAPSULE completed once daily - Serena Bravo FOLIC ACID 400 MCG ORAL TABLET completed 1 tablet by mouth daily - Clark Chavez Fish Oil 360-1,200 mg capsule active 1 capsule by mouth once a day Bernardo Turner WEIGHT CONSCIOUS VITAMINS completed as directed daily - Clark Chavez VITAMIN D3 1000 UNIT ORAL TABLET completed 1 tablet by mouth daily - Clark Chavez COQ10 CAPSULE active 200 mg by mouth once a day Bernardo Turner aspirin 81 mg tablet,delayed release (DR/EC) active 1 tablet by mouth once a day Akil Amaya MD LISINOPRIL 20 MG ORAL TABLET completed 1 tablet by mouth daily - Serena Bravo SOCIAL HISTORY Date Observation Value Provider drug use no [facility] passive cigarette sm kofi exposure no [facility] smoking status Never smoker [facility] drug use no [facility] passive cigarette sm kofi exposure no [facility] smoking status Never smoker [facility] drug use no [facility] passive cigarette sm kofi exposure no [facility] smoking status Never smoker [facility] social history E&M Marital Statu s: L blaire with family/friends E thnicity: Prefer not to disclose this information Smoking History: Katey wallace has never smoked. Brian Jeffers MD physical exercise, frequency, days per week no Brian Jeffers MD caffeine use, averag e drinks per day yes Brian Jeffers MD passive cigarette sm kofi exposure no Brian Jeffers MD smoking status Never smoker Brian Ferrer social history reviewed E&M revi ewed - no changes required Brian Jeffers MD social history E&M Marital Statu s: L blaire with family/friends E thnicity: Prefer not to disclose this information S moking History: aKtey wallace has never smoked. Akil Amaya MD social history reviewed E&M revi ewed - no changes required Akil Amaya MD social history E&M Marital Statu s: L blaire with family/friends E thnicity: Prefer not to disclose this information Smoking History: Katey wallace has never smoked. Akil Amaya MD social history reviewed E&M revi ewed - no changes required Akil Amaya MD physical exercise, frequency, days per week no Sekou Ryan caffeine use, averag e drinks per day yes Sekou Ryan passive cigarette sm kofi exposure no Sekou Ryan smoking status Never smoker Sekou Grimes social history E&M Marital Statu s: L blaire with family/friends E thnicity: Prefer not to disclose this information Smoking History: Katey wallace has never smoked. Akil Amaya MD social history reviewed E&M revi ewed - no changes required Akil Amaya MD physical exercise, frequency, days per week no Chastity Loyda alcohol use, average drinks per day social basis only Chastity Loyda caffe [id number]|2024-11-26 15:40:00|2024-11-26 15:39:00|XMS_ITS|BKG DAEMON|External Medical Summaries|[id number]|" Referral Summary Created on: November 26, 2024 Link Davenport : 1955 Sex: Female Author Organization [facility] Address [address] [place] [id number] Care Team Providers Care Corporate Librarian Name Role Phone Parul Doran DO Primary Care Provider [phone] Encounters Date Type Department Care Team Description 09/13/2024 9:01 AM TRAFFIC CONTROL FLAGGER - 09/13/2024 11:59 PM TRAFFIC [facility]OL [facility] Encounter [facility] ([facility]) [address] [place], [place] [id number] Speech disturbance, unspecified type Discharge Disposition: Discharge to home or self care from Last 3 Months Allergies Active Allergy Reactions Criticality Noted Date [...] spine 01/24/2013 Sciatica 01/24/2013 Migraine headache 11/04/2010 Social History Tobacco Use Types Packs/Day Years Used Date Smoking Tobacco: Never Tobacco Cessation:Counseling Given: Not Answered Comments Unknown Sex and Gender Information Value Date Recorded Sex Assigned at Not on file Legal Sex Female 9:08 AM TRAFFIC CONTROL FLAGGER Gender Identity Not on file Sexual Orientation Not on file Last Filed Vital Signs Vital Sign Reading Time Taken Comments Blood Pressure 169/81 08/02/2024 9:38 AM TRAFFIC CONTROL FLAGGER Pulse 70 08/02/2024 9:38 AM TRAFFIC CONTROL FLAGGER Temperature - - Respiratory Rate - - Oxygen Saturation - - Inhaled Oxygen Concentration - - Weight 68.5 kg (151 lb) 09/13/2024 9:23 AM TRAFFIC CONTROL FLAGGER Height 162.6 cm (5' 4 ) 09/13/2024 9:23 AM TRAFFIC CONTROL FLAGGER Body Mass Index 25.92 09/13/2024 9:23 AM TRAFFIC CONTROL FLAGGER Plan of Treatment Not on file Procedures Procedure Name Priority Date/Time Associated Diagnosis Comments MRI BRAIN AND VOLUMETRIC WO CONTRAST Schedule Routine, Read Routine (OP Routine) 09/13/2024 10:06 AM TRAFFIC CONTROL FLAGGER Speech disturbance, unspecified type from Last 3 Months Results * MRI Brain and Volumetric WO Contrast (09/13/2024 10:06 AM TRAFFIC CONTROL FLAGGER) Anatomical Region Laterality Modality Head and Neck N/A Magnetic Resonan ce 09/13/2024 12:2 5 PM TRAFFIC CONTROL FLAGGER Impressions 09/14/2024 11:26 AM TRAFFIC CONTROL FLAGGER 1. Subjectively smaller and mildly FLAIR hyperintense [...] Desirae Lizarraga M.D. Narrative 09/14/2024 11:26 AM TRAFFIC CONTROL FLAGGER EXAMINATION: Magnetic resonance imaging (MRI) of the brain and brainstem without contrast HISTORY: Word finding problems, possible memory changes. TECHNIQUE: Multiplanar multi-weighted MRI of the brain and brainstem was performed without intravenous contrast using a protocol specific to assess patients with memory complaints. T1-weighted sagittal MPRAGE images of the brain were postprocessed on [employer] to generate segmented brain volumes using commercial software. Results were compared to 10th and 90th percentiles of healthy age-/gender-matched population. Graphs were sent to [employer] and [employer] PACS. The protocol specifically includes FLAIR to [...] in size. Quantitative assessment was performed using [employer] and is reported. Regional brain volumes are [...] images of the brain were postprocessed on [employer] to generate segmented brain volumes using commercial software. Results were compared to 10th and 90th percentiles of healthy age-/gender-matched population. Graphs were sent to [employer] and [employer] PACS. The protocol specifically includes FLAIR to [...] in size. Quantitative assessment was performed using [employer] and is reported. 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
[2024-11-26 20:28] LABS: Alanine Aminotransferase 24 U/L (6-35); Albumin Level 4.6 g/dL (3.5-5.1); Alkaline Phosphatase 106 U/L (38-126); Anion Gap 9 mmol/L (4-12); Aspartate Amino Transferase 48 U/L (14-36); Bilirubin,Total 0.3 mg/dL (0.2-1.3); Blood Urea Nitrogen 12 mg/dL (7-17); Calcium 9.9 mg/dL (8.4-10.2); Carbon Dioxide 28 mmol/L (22-30); Chloride 105 mmol/L (98-107); Cholesterol 174 mg/dL (0-200); Estimated Glomerular Filt Rate > 60; Glucose 84 mg/dL (65-110); HDL Direct 41 mg/dL; Sodium 142 mmol/L (137-145); Triglycerides 252 mg/dL (<150)
[2024-11-26 20:39] LABS: LDL Cholesterol Direct 79 mg/dL
[2024-11-26 21:11] LABS: Hemoglobin A1C 5.9 % (<5.7)
== END 2024-11-26 15:37 | disposition home or self-care (01) ==
LOC: ANHGOSHLAB 15:37
PROVIDERS: PCP Family Medicine; Visit Provider Nurse Practitioner
DX: E78.5 Hyperlipidemia, unspecified (principal); R73.03 Prediabetes
CPT/HCPCS: 36415; 80053; 80061; 83036

== ENCOUNTER 2024-12-05 09:29 | Outpatient (CLI) | payer OTHER, SELFPAY ==
--- NOTE | ~2024-12-05 | CT_ITS ---
Non-contrast CT scan of the Abdomen and Pelvis Clinical indication: Abdominal pain Technique: 2.5 mm axial scans were obtained through the abdomen and pelvis without intravenous or or al contrast. Dose reduction technique was used on this scan by utilizing automated exposure control a nd iterative reconstruction technique. The dose-length product (DLP) was 519.13 mGy-cm. COMPARISON: 03/25/2022 Findings: Images through the lung bases reveal no abnormalities. There is no evidence of renal or ureteral calculi. The kidneys and the ureters are nondilated. The liver, spleen, pancreas, and adrenals appear normal. Calcified gallstones are present. There is n o aortic aneurysm. There is no evidence of bowel obstruction. Normal appendix. Images through the pelvis were performed. There is no evidence of ascites or lymphadenopathy. Urinary bladder distended, but otherwise unremarkable. No pelvic mass seen. Impression: Cholelithiasis. Reviewed, dictated and finalized at [facility]. Impression: Cholelithiasis.
== END 2024-12-05 09:30 | disposition home or self-care (01) ==
LOC: MICIMG 09:29
PROVIDERS: PCP Family Medicine; Visit Provider Nurse Practitioner
DX: K80.20 Calculus of gallbladder without cholecystitis without obstruction (principal)
CPT/HCPCS: 74176

== ENCOUNTER 2025-05-26 14:14 | Outpatient (CLI) | payer OTHER, SELFPAY ==
--- NOTE | ~2025-05-26 | MM_ITS ---
EXAMINATION: MM screening [facility] BI w kwaku HISTORY: Screening TECHNIQUE: Craniocaudal and mediolateral oblique 3-D tomosynthesis images were obtained and synthetic 2-D images were generated. CAD analysis was submitted and interpreted. COMPARISON: Comparison to multiple prior studies sequentially, with oldest reviewed study dated 02/26/2019. BREAST PARENCHYMAL COMPOSITION: Not dense: There are scattered areas of fibroglandular density. FINDINGS: There is no evidence of suspicious mass, calcification, or architectural distortion to suggest malignancy in either breast. There has been no suspicious interval change. IMPRESSION: 1. No mammographic evidence of malignancy. 2. Recommend routine screening mammography in one year. BI-RADS Category 1: Negative Reviewed, dictated and finalized at location [facility]. [facility]
== END 2025-05-26 14:15 | disposition home or self-care (01) ==
LOC: MICIMG 14:15
PROVIDERS: PCP Family Medicine; Visit Provider Family Medicine
DX: Z12.31 Encounter for screening mammogram for malignant neoplasm of breast (principal)
CPT/HCPCS: 77063; 77067